=== PATIENT | female | born 1950 | race Two or more races ===

== ENCOUNTER 2017-09-10 10:32 | Outpatient (CLI) | payer OTHER | END 2017-09-10 13:36 | disposition home or self-care (01) | LOC: TOM 10:32 | DX: K11.5 Sialolithiasis (principal) ==

== ENCOUNTER → 2018-08-15 | Emergency (ER) | payer OTHER ==
[~2018-08-15] VITALS: Ht 154.9 cm; Wt 51.7 kg
[~2018-08-15] MED LIST: ACTIGALL300 MG PO; MEDROLPACK PO; PEPCID20 MG PO; PRILOSEC OTC20 MG PO
== END | disposition home or self-care (01) ==
LOC: ER 10:35
DX: R11.0 Nausea (principal); F44.0 Dissociative amnesia; F41.1 Generalized anxiety disorder

== ENCOUNTER 2019-05-12 10:40 | Outpatient (CLI) | payer OTHER | END 2019-05-12 10:51 | disposition home or self-care (01) | LOC: RAD 10:40 | DX: N20.0 Calculus of kidney (principal); J45.998 Other asthma ==

== ENCOUNTER 2019-05-21 07:15 | Outpatient (CLI) | payer OTHER | END 2019-05-21 07:17 | disposition home or self-care (01) | LOC: SONOGRAMA 07:15 → MAMO-SONO 07:15 → SONOGRAMA 07:17 | DX: K76.0 Fatty (change of) liver, not elsewhere classified (principal); R74.0 Nonspecific elevation of levels of transaminase and lactic acid dehydrogenase [LDH] ==

== ENCOUNTER 2019-05-22 09:31 | Outpatient (CLI) | payer OTHER | END 2019-05-22 09:38 | disposition home or self-care (01) | LOC: TOM 09:31 | DX: K57.33 Diverticulitis of large intestine without perforation or abscess with bleeding (principal); N20.0 Calculus of kidney ==

== ENCOUNTER → 2019-06-04 | Outpatient (CLI) | payer OTHER | END | disposition home or self-care (01) | LOC: NUCLEAR 10:44 | DX: M81.0 Age-related osteoporosis without current pathological fracture (principal) ==

== ENCOUNTER → 2019-08-11 | Emergency (ER) | payer OTHER ==
[~2019-08-11] VITALS: Ht 154.9 cm; Wt 53.1 kg
[~2019-08-11] MED LIST changes: +PRILOSEC OTC20 MG
== END | disposition home or self-care (01) ==
LOC: ER 08:40
DX: M54.5 Low back pain (principal)

== ENCOUNTER 2019-11-13 10:40 | Emergency (ER) | payer OTHER ==
[~2019-11-13] VITALS: Ht 154.9 cm; Wt 53.5 kg
[2019-11-13] MEDS ORDERED: ACTIGALL300 MG PO (11:13)
[2019-11-13] MEDS ORDERED: TUSSI PRES-B L480 ML PO (11:13)
[2019-11-13] MEDS ORDERED: AZELASTINE137 MCG/0. NASAL (11:13)
[2019-11-13] MEDS ORDERED: CRESTOR5 MG PO (11:13)
[2019-11-13] MEDS ORDERED: SINGULAIR10 MG PO (11:13)
[2019-11-13] MEDS ORDERED: TESSALON PERLE100 M1 PO (11:13)
[2019-11-13] MEDS ORDERED: XOPENEX0.63 MG/3 IH (11:14)
[2019-11-13] MEDS ORDERED: OSEL75CA PO (12:57)
== END 2019-11-13 13:36 | disposition home or self-care (01) ==
LOC: ER 10:40
DX: J11.1 Influenza due to unidentified influenza virus with other respiratory manifestations (principal); R05 Cough

== ENCOUNTER 2021-04-21 08:58 | Outpatient (CLI) | payer OTHER ==
[~2021-04-21 08:58] MED LIST changes: +AZELASTINE137 MCG/0. NASAL; +CRESTOR5 MG PO; +OSEL75CA PO; +SINGULAIR10 MG PO; +TESSALON PERLE100 M1 PO; +TUSSI PRES-B L480 ML PO; +XOPENEX0.63 MG/3 IH
== END 2021-04-21 09:16 | disposition home or self-care (01) ==
LOC: TOM 08:58
PROVIDERS: ATTEND Specialist
DX: R07.89 Other chest pain (principal); J47.0 Bronchiectasis with acute lower respiratory infection

== ENCOUNTER 2021-08-02 07:14 | Outpatient (CLI) | payer OTHER | END 2021-08-02 07:20 | disposition home or self-care (01) | LOC: MRI 07:14 | PROVIDERS: ATTEND Specialist | DX: C22.0 Liver cell carcinoma (principal) | CPT/HCPCS: 72197; 74183 ==

== ENCOUNTER 2022-12-11 13:33 | Emergency (ER) | payer OTHER ==
[~2022-12-11] VITALS: Ht 154.9 cm; Wt 55.8 kg
[2022-12-11] MEDS ORDERED: SYMBICORT 16010.2 GM IH (14:31)
[2022-12-11] MEDS ORDERED: BENZONATATE200 M1 PO (17:10)
[2022-12-11] MEDS ORDERED: ZITHROMAX500 MG PO (17:10)
== END 2022-12-11 17:16 | disposition home or self-care (01) ==
LOC: ER 13:33
DX: J45.901 Unspecified asthma with (acute) exacerbation (principal); Z88.6 Allergy status to analgesic agent

== ENCOUNTER 2023-11-13 11:03 | Outpatient (CLI) | payer OTHER ==
[~2023-11-13 11:03] MED LIST changes: +BENZONATATE200 M1 PO; +SYMBICORT 16010.2 GM IH; +ZITHROMAX500 MG PO
[2023-11-13 11:37] LABS: HEMATOCRIT 40.4 % (36.0-45.00); HEMOGLOBIN 13.4 g/dL (12.0-15.00); MEAN CELL VOLUME 84.1 fL (80.00-100.00); MEAN CORPUSCULAR HEMOGLOBIN 27.9 pg (27.00-32.0); MEAN CORPUSCULAR HGB CONC 33.1 g/dl (32.0-36.0); PLATELET COUNT 241 K/uL (150-450); RED BLOOD COUNT 4.81 M/uL (4.00-6.00); RED CELL DISTRIBUTION WIDTH 14.4 % (11.5-14.5)
[2023-11-13 12:46] LABS: MYCOPLASMA PNEUMONIAE IGM REACTIVE (NO REACTIVE)
== END 2023-11-13 11:04 | disposition home or self-care (01) ==
LOC: LAB 11:03
PROVIDERS: ATTEND Specialist
DX: U07.1 COVID-19 (principal); J11.1 Influenza due to unidentified influenza virus with other respiratory manifestations; A49.3 Mycoplasma infection, unspecified site; D64.9 Anemia, unspecified